=== PATIENT | female | born 1985 | race Two or more races ===

== ENCOUNTER 2022-11-23 00:45 | Inpatient (IN) | payer OTHER ==
[2022-11-23 02:06] VITALS: BMI 35.8
[2022-11-23 02:11] LABS: INR 0.9 (0.83-1.09); PROTHROMBIN TIME (PATIENT) 10.4 SEC (9.7-13.0)
[2022-11-23 02:13] LABS: ACTIVATED PTT 25.5 SECONDS (25.2-36.5); BASO % 0.2 % (0-2.0); EOS % 1.7 % (0-4.5); HEMATOCRIT 34.1 % (32.4-45.2); HEMOGLOBIN 10.9 GM/dL (10.7-15.3); LYMPH % 22.7 % (8-40); MCH 27.1 pg (25.7-33.7); MCHC 31.9 g/dl (32.0-36.0); MEAN CELL VOLUME 84.8 fl (80-96); MEAN PLT VOLUME 9.8 fl (7.5-11.1); MONO % 6.8 % (3.8-10.2); NEUT % 68.6 % (42.8-82.8); PLATELET COUNT 274 10^3/uL (134-434); RBC 4.02 M/mm3 (3.60-5.2); RDW 16.8 % (11.6-15.6); WHITE BLOOD COUNT 7.1 K/mm3 (4.0-10.0)
[2022-11-23 02:20] LABS: POTASSIUM 3.9 mmol/L (3.5-5.1)
[2022-11-23 02:22] LABS: BLOOD UREA NITROGEN 7.2 mg/dL (7-18); CALCIUM 8.4 mg/dL (8.5-10.1)
[2022-11-23 02:25] LABS: CREATININE 0.5 mg/dL (0.55-1.3)
[2022-11-23] MEDS ORDERED: CITRIC ACID/SODIUM CITRATE 30 ML UNIT-DOSE CUP PO ONE (04:29)
[2022-11-23] MEDS ORDERED: ELECTROLYTE-148 SOLN 1,000 ML IV SCH ×2 (04:30)
[2022-11-23] MEDS ORDERED: morphine SULFATE/PF 1 MG/2 ML (2cc Syringe - QUVA) ONE (08:16)
[2022-11-23] MEDS ORDERED: ONDANSETRON 4 MG/2 ML VIAL IVPUSH PRN (10:09)
[2022-11-23] MEDS ORDERED: ACETAMINOPHEN 325 MG TABLET (FP) PO PRN (10:09)
[2022-11-23] MEDS ORDERED: IBUPROFEN 600 MG TABLET (FP) PO PRN (10:09)
[2022-11-23] MEDS ORDERED: METHYLERGONOVINE MALEATE 0.2 MG/1 ML AMP IM PRN (10:26)
[2022-11-23] MEDS: OXYTOCIN 20 UNITS in 0.9% NS 20 UNIT/1,000 ML INFUS.BAG IV SCH ×2 (10:45→17:40)
[2022-11-23] MEDS ORDERED: ACETAMINOPHEN 1000 MG/100 ML BAG IVPB ONE (11:00)
[2022-11-23] MEDS: ACETAMINOPHEN 325 MG TABLET (FP) PO PRN (17:39)
[2022-11-23] MEDS: FERROUS SO4 325 MG TABLET (FP) PO SCH (17:40)
[2022-11-23] MEDS ORDERED: IBUPROFEN 800 MG/8 ML IJ IVPB PRN (20:23)
[2022-11-23] MEDS: ENOXAPARIN NA (PORCINE) 40 MG/0.4 ML DISP.SYRIN SQ SCH (21:51)
[2022-11-24] MEDS: SIMETHICONE 80 MG TAB.CHEW (FP) PO PRN ×3 (01:39→14:58)
[2022-11-24] MEDS: LEVOTHYROXINE NA 50 MCG TABLET (FP) PO SCH (06:10)
[2022-11-24] MEDS: IBUPROFEN 600 MG TABLET (FP) PO PRN ×2 (07:34→17:38)
[2022-11-24 07:53] LABS: BASO % 0.2 % (0-2.0); EOS % 1.4 % (0-4.5); HEMATOCRIT 31.8 % (32.4-45.2); HEMOGLOBIN 10.5 GM/dL (10.7-15.3); LYMPH % 16.5 % (8-40); MCH 27.5 pg (25.7-33.7); MCHC 32.9 g/dl (32.0-36.0); MEAN CELL VOLUME 83.6 fl (80-96); MEAN PLT VOLUME 8.8 fl (7.5-11.1); MONO % 5.2 % (3.8-10.2); NEUT % 76.7 % (42.8-82.8); PLATELET COUNT 288 10^3/uL (134-434); RDW 16.7 % (11.6-15.6); WHITE BLOOD COUNT 11.4 K/mm3 (4.0-10.0)
[2022-11-24] MEDS: FERROUS SO4 325 MG TABLET (FP) PO SCH ×2 (10:03→17:38)
[2022-11-24] MEDS: PRENATAL VITAMINS W/ FOLIC ACID TABLET (FP) PO SCH (10:03)
[2022-11-24] MEDS: ENOXAPARIN NA (PORCINE) 40 MG/0.4 ML DISP.SYRIN SQ SCH (10:03)
[2022-11-24] MEDS ORDERED: BISACODYL 10 MG SUPP.RECT RC PRN (10:26)
[2022-11-24] MEDS: ACETAMINOPHEN 325 MG TABLET (FP) PO PRN (14:58)
[2022-11-24] MEDS: oxyCODONE HCL 5 MG TABLET PO PRN (19:03)
[2022-11-25] MEDS: IBUPROFEN 600 MG TABLET (FP) PO PRN ×3 (02:53→20:19)
[2022-11-25] MEDS: SIMETHICONE 80 MG TAB.CHEW (FP) PO PRN ×2 (03:24→20:19)
[2022-11-25] MEDS: oxyCODONE HCL 5 MG TABLET PO PRN ×3 (03:26→16:56)
[2022-11-25] MEDS: LEVOTHYROXINE NA 50 MCG TABLET (FP) PO SCH (06:07)
[2022-11-25] MEDS: FERROUS SO4 325 MG TABLET (FP) PO SCH ×2 (08:51→16:56)
[2022-11-25] MEDS: ENOXAPARIN NA (PORCINE) 40 MG/0.4 ML DISP.SYRIN SQ SCH (10:15)
[2022-11-25] MEDS: PRENATAL VITAMINS W/ FOLIC ACID TABLET (FP) PO SCH (10:15)
[2022-11-25 12:46] LABS: POC NITRAZINE POS
[2022-11-26] MEDS: SIMETHICONE 80 MG TAB.CHEW (FP) PO PRN (06:14)
[2022-11-26] MEDS: LEVOTHYROXINE NA 50 MCG TABLET (FP) PO SCH (06:14)
[2022-11-26] MEDS: IBUPROFEN 600 MG TABLET (FP) PO PRN (06:14)
[2022-11-26 08:22] LABS: BASO % 0.2 % (0-2.0); EOS % 3.2 % (0-4.5); HEMATOCRIT 27.9 % (32.4-45.2); HEMOGLOBIN 8.9 GM/dL (10.7-15.3); LYMPH % 27.1 % (8-40); MCH 27.4 pg (25.7-33.7); MEAN CELL VOLUME 85.5 fl (80-96); MEAN PLT VOLUME 8.5 fl (7.5-11.1); MONO % 5.5 % (3.8-10.2); PLATELET COUNT 250 10^3/uL (134-434); RBC 3.26 M/mm3 (3.60-5.2); RDW 17.2 % (11.6-15.6); WHITE BLOOD COUNT 6.4 K/mm3 (4.0-10.0)
[2022-11-26 08:45] VITALS: BP 124/64; PULSE 84; RESP 20; TEMP 98.6
[2022-11-26] MEDS: PRENATAL VITAMINS W/ FOLIC ACID TABLET (FP) PO SCH (09:25)
[2022-11-26] MEDS: FERROUS SO4 325 MG TABLET (FP) PO SCH (09:25)
[2022-11-26] MEDS: ENOXAPARIN NA (PORCINE) 40 MG/0.4 ML DISP.SYRIN SQ SCH (09:25)
== END 2022-11-26 12:10 | disposition home or self-care (01) | DRG 540 ==
LOC: JLDR 00:45 → J3W 13:14
PROVIDERS: ADMIT Specialist; ATTEND Specialist
PROC: 10D00Z1 Extraction of Products of Conception, Low, Open Approach (ICD-10-PCS; principal; 2022-11-23)
DX: O32.1XX0 Maternal care for breech presentation, not applicable or unspecified (principal); O42.02 Full-term premature rupture of membranes, onset of labor within 24 hours of rupture; Z3A.38 38 weeks gestation of pregnancy; Z37.0 Single live birth
CPT/HCPCS: 36415; 76819-TC; 80048; 83986-QW; 85025; 85610; 85730; 86780; 86850; 86900; 86901; 88307-TC

== ENCOUNTER 2022-11-28 00:06 | Emergency (ER) | payer OTHER ==
[2022-11-28 00:14] VITALS: BP 122/66; PULSE 88; RESP 18; TEMP 97.7; BMI 36.3
[2022-11-28] MEDS ORDERED: diphenhydrAMINE HCL 25 MG CAPSULE (FP) PO ONE ×2 (01:52→01:56)
== END 2022-11-28 02:18 | disposition home or self-care (01) ==
LOC: JER 00:06
DX: R21 Rash and other nonspecific skin eruption (principal); L29.9 Pruritus, unspecified; T78.40XA Allergy, unspecified, initial encounter
CPT/HCPCS: 99283-25